=== PATIENT | female | born 1990 | race Caucasian/White ===

== ENCOUNTER 2018-10-08 23:28 | Emergency (ER) | payer OTHER ==
[~2018-10-08] VITALS: Ht 170.2 cm; Wt 79.4 kg
--- NOTE | 2018-10-08 23:32 | NUR ---
PT TAKEN TO BED 8
[2018-10-08 23:34] VITALS: BP 133/92
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
--- NOTE | 2018-10-09 00:18 | NUR ---
EDMD AT BEDSIDE PERFORMING MSE
[2018-10-09] MEDS ORDERED: DEXAMETHASONE 10 MG/ML VIAL PO ONE (00:25)
[2018-10-09] MEDS ORDERED: KETOROLAC 30 MG/ML VIAL IM ONE (00:25)
[2018-10-09 00:50] VITALS: BP 133/92
--- NOTE | 2018-10-09 00:50 | NUR ---
Patient discharged with v/s stable. Written and verbal after care instructions given and explained. Patient alert, oriented and verbalized understanding of instructions. Ambulatory with steady gait. All questions addressed prior to discharge. ID band removed. Patient advised to follow up with PMD. Rx of NORCO, AMOXICILLIN, AND NAPROSYN given. Patient educated on indication of medication including possible reaction and side effects. Opportunity to ask questions provided and answered.
== END 2018-10-09 00:50 | disposition home or self-care (01) ==
LOC: MED 23:28
DX: J02.9 Acute pharyngitis, unspecified (principal)
CPT/HCPCS: 87081; 96372; 99283; J1100; J1885

== ENCOUNTER 2019-03-20 08:52 | Emergency (ER) | payer OTHER ==
[~2019-03-20] VITALS: Ht 170.2 cm; Wt 74.8 kg
[2019-03-20 09:00] VITALS: BP 133/83
== END 2019-03-20 10:35 | disposition left against medical advice (07) ==
LOC: MED 08:52
DX: J02.9 Acute pharyngitis, unspecified (principal)
CPT/HCPCS: 87081; 99283

== ENCOUNTER 2020-03-12 20:27 | Emergency (ER) | payer OTHER ==
[~2020-03-12] VITALS: Ht 170.2 cm; Wt 67.1 kg
[2020-03-12 20:30] VITALS: BP 127/93
--- NOTE | 2020-03-12 20:36 | NUR ---
PT TAKEN TO BED 11
--- NOTE | 2020-03-12 20:41 | NUR ---
Dr. Gutiérrez examining patient.
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
--- NOTE | 2020-03-12 21:13 | NUR ---
PELVIC EXAM TRAY SET FOR BEDSIDE PROCEDURE. NIKHIL LAY RN AT BEDSIDE TO ETL DATA ARCHITECT LIBORIO GARCIA.
[2020-03-12] MEDS ORDERED: cefTRIAXone 500 MG in LIDOCAINE MPF 1% 1 ML IM ONE (21:25)
[2020-03-12] MEDS ORDERED: DOXYCYCLINE 100 MG CAP PO SCH (21:25)
[2020-03-12] MEDS ORDERED: LIDOCAINE MPF 1% 5 ML ONE (21:27)
[2020-03-12] MEDS ORDERED: cefTRIAXone 500 MG VIAL ONE (21:27)
--- NOTE | 2020-03-12 21:36 | NUR ---
LAB AT BEDSIDE.
[2020-03-12 22:11] VITALS: BP 127/93
--- NOTE | 2020-03-12 22:11 | NUR ---
Patient discharged with v/s stable. Written and verbal after care instructions given and explained. Patient alert, oriented and verbalized understanding of instructions. Ambulatory with steady gait. All questions addressed prior to discharge. ID band removed. Patient advised to follow up with PMD. Rx of FLUCONAZOLE & DOXYCYCLINE given. Patient educated on indication of medication including possible reaction and side effects. Opportunity to ask questions provided and answered.
== END 2020-03-12 22:11 | disposition home or self-care (01) ==
LOC: MED 20:27
DX: B37.9 Candidiasis, unspecified (principal)
CPT/HCPCS: 36415; 81002; 81025; 86592; 86703; 87210; 87491; 96372; 99283; J0696; J2001

== ENCOUNTER 2020-07-08 07:31 | Emergency (ER) | payer OTHER, SELFPAY ==
--- NOTE | 2020-07-08 07:57 | NUR ---
PATIENT LEFT WITHOUT BEING SEEN BY . NO FURTHER CARE PROVIDED FOR PATIENT.
== END 2020-07-08 07:57 | disposition left against medical advice (07) ==
LOC: MED 07:31
DX: J02.9 Acute pharyngitis, unspecified (principal); Z53.21 Procedure and treatment not carried out due to patient leaving prior to being seen by health care provider